=== PATIENT | female | born 1995 | race Caucasian/White ===

== ENCOUNTER 2019-07-18 19:52 | Emergency (ER) | payer OTHER ==
--- NOTE | 2019-07-18 19:58 | ED Physician Documentation ---
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 she also reports some vague complaints to include possible paresthesias in bilaterally upper extremities that lasted a few seconds and has since resolved. she denies any cp/sob/syncope/neck pain/rashes/fevers or any other complaints. denies any chronic medical problems, did not try and treatment prior to arrival. has a scheduled appointment tomorrow am with her physician at [facility]. Denies any family hx of suddent in mother, brother, father, sister.describes her headache as minimal, not sudden in onset, not maximum in intensity, not the worst headache of her life. denies any fam/pers hx of SAH/cerebral aneurysm. denies any hx of seizures.) Review of Systems Constitutional: reports: Reviewed and negative Eyes: reports: Reviewed and negative Ears: reports: Reviewed and negative Nose: reports: Reviewed and negative Throat: reports: Reviewed and negative Cardiac: reports: Reviewed and negative Respiratory: reports: Reviewed and negative GI: reports: Reviewed and negative : reports: Reviewed and negative Skin: reports: Reviewed and negative Musculoskeletal: reports: Reviewed and negative Neurologic: reports: Headache Psychiatric: reports: Reviewed and negative Endocrine: reports: Reviewed and negative Immunocompromised: reports: Reviewed and negative PD PAST MEDICAL HISTORY - Allergies Allergies/Adverse Reactions: Allergies Allergy/AdvReac Type Severity Reaction Status Date / Time No Known Drug Allergies Allergy Verified 07/18/19 19:54 PD ED PE NORMAL - Vitals Vital signs reviewed: Yes - General General: Alert and oriented X 3, No acute distress, Well developed/nourished - HEENT HEENT: Atraumatic, PERRL, EOMI, Ears normal, Moist mucous membranes, Pharynx benign, Dentition benign, Other (Extraocular motion intact and there is no nystagmus on exam funduscopic exam shows no papilledema.) - Neck Neck: Supple, no meningeal sign, No bony TTP, No adenopathy, Thyroid normal, No JVD - Cardiac Cardiac: RRR, No murmur, Strong equal pulses - Respiratory Respiratory: No respiratory distress, Clear bilaterally - Abdomen Abdomen: Normal bowel sounds, Soft, Non tender, Non distended - Rectal Rectal: Deferred, Pt declined - Back Back: No CVA TTP, No spinal TTP - Derm Derm: Normal color, Warm and dry, No rash - Extremities Extremities: No deformity, No tenderness to palpate, Normal ROM s pain, No edema, No calf tenderness / cord - Neuro Neuro: Alert and oriented X 3, director prospect 2-12 intact, No motor deficit, No sensory deficit, Normal speech, Other (There is no facial droop, no pronator drift, no unilateral weakness. Normal [id number], normal [id number]-[id number], normal rapid alternating movements strength is 5 out of 5 in bilateral upper and lower extremity sensations intact to light touch funduscopic exam shows no papilledema.) - Psych Psych: Normal mood, Normal affect Results - Vitals Vitals: Vital Signs - 24 hr 07/18/19 07/18/19 19:54 20:36 Temperature 36.6 C 37.1 C Heart Rate 79 86 Respiratory 14 14 Rate Blood Pressure 136/70 H 111/71 O2 Saturation 100 98 Oxygen O2 Source Room air PD MEDICAL DECISION MAKING - ED course Complexity details: considered differential (Patient reports vague symptoms of a mild headache that has resolved that started approximately 10 AM earlier today she denies any headache currently denies any fevers, neck pain, shortness of breath or any syncopal episodes there is no red flags on history exam to suggest subarachnoid hemorrhage or cerebral aneurysm or ischemic or hemorrhagic stroke.Patient is well-appearing and she has established follow-up care tomorrow 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 Patient will be discharged home with close follow-up.) Departure - Departure Disposition: 01 Home, Self Care Clinical Impression: Headache Qualifiers: Headache type: unspecified Headache chronicity pattern: unspecified pattern Intractability: not intractable Qualified Code(s): R51 - Headache Condition: Stable Instructions: ED Cephalgia Unspecified Follow-Up: your, doctor [Other] - Tomorrow Comments: follow up with your physician tomorrow at [facility]. Discharge Date/Time: 07/18/19 20:40
[2019-07-18] MEDS ORDERED: ACETAMINOPHEN 325 MG TABLET PO STA (20:18)
[2019-07-18 20:40] VITALS: BP 111/71
== END 2019-07-18 20:40 | disposition home or self-care (01) ==
LOC: ED 19:52
DX: R51 Headache (principal)
CPT/HCPCS: 99282; 99284; A9270

== ENCOUNTER 2021-02-24 11:33 | Emergency (ER) | payer OTHER ==
[2021-02-24 11:57] VITALS: BP 97/67
[2021-02-24] MEDS ORDERED: VENLAFAXINE 37.5 MG TABLET PO STA (12:30)
--- NOTE | 2021-02-24 12:33 | ED Physician Documentation ---
History of Present Illness - Stated complaint Stated Complaint: DRUG WITHDRAWALS - Chief complaint Chief Complaint: General - History obtained from History obtained from: Patient - Additonal information Additional information: -year-old woman who with depression had her depression well controlled on Effexor at a dose of 150 mg once a day. Because there is also a possibility of IBS she was being rapidly transition from Effexor to amitriptyline over 2 weeks. The weaning plan from the Effexor was to go from 150 mg a day to 75 mg a day for a week, then 37.5 mg a day for a week, then stop. The plan for amitriptyline was starting at 10 mg at night and then to 20 mg at night after the first week. Over the last few days she has developed terrible symptoms including fatigue, brain zaps, shakiness. She denies SI or HI. Review of Systems Constitutional: denies: Fever, Chills Cardiac: denies: Chest pain / pressure, Palpitations Respiratory: denies: Dyspnea, Cough PD PAST MEDICAL HISTORY - Past Medical History Psych: Depression, Anxiety, ADD/ADHD - Past Surgical History Past Surgical History: Yes HEENT: Tonsil/Adenoidectomy - Present Medications Home Medications: Ambulatory Orders Medication Instructions Recorded Confirmed Venlafaxine ER [Effexor ER] 75 mg PO DAILY #30 cap 02/24/21 - Allergies Allergies/Adverse Reactions: Allergies Allergy/AdvReac Type Severity Reaction Status Date / Time Penicillins AdvReac Unknown Verified 02/24/21 11:57 - Social History Does the pt smoke?: No Smoking Status: Former smoker Does the pt drink ETOH?: Yes Does the pt have substance abuse?: No - Immunizations Immunizations are current?: Yes - POLST Patient has POLST: No PD ED PE NORMAL - Vitals Vital signs reviewed: Yes - General General: Alert and oriented X 3, No acute distress - Extremities Extremities: Other (Normal reflexes at the ankles without clonus) - Neuro Neuro: Alert and oriented X 3, Normal speech - Psych Psych: Normal mood, Normal affect Results - Vitals Vitals: Vital Signs - 24 hr 02/24/21 11:51 Temperature 36.2 C L Heart Rate 99 Respiratory 18 Rate Blood Pressure 97/67 O2 Saturation 100 Oxygen O2 Source Room air Departure - Departure Disposition: 01 Home, Self Care Clinical Impression: On SSRI therapy Medication withdrawal Qualifiers: Substance type: other psychoactive substance Qualified Code(s): F19.939 - Other psychoactive substance use, unspecified with withdrawal, unspecified Condition: Good Record reviewed to determine appropriate education?: Yes Prescriptions: Venlafaxine ER [Effexor ER] 75 mg PO DAILY #30 cap Comments: As discussed, I am restarting your Effexor at 75 mg once a day and I would recommend that you take the amitriptyline at 10 mg at night. Follow-up with your doctor to see how this is going. Return for new or worsening symptoms. I sent your prescription electronically to [facility] in [place].
== END 2021-02-24 12:41 | disposition home or self-care (01) ==
LOC: ED 11:33
DX: F19.939 Other psychoactive substance use, unspecified with withdrawal, unspecified (principal); F32.A Depression, unspecified; Z87.891 Personal history of nicotine dependence
CPT/HCPCS: 99282; 99283; A9270

== ENCOUNTER 2021-10-31 16:06 | Outpatient (CLI) | payer OTHER | END 2021-10-31 16:07 | disposition critical access hospital (66) | LOC: EMS 16:06 | DX: R45.851 Suicidal ideations (principal) | CPT/HCPCS: A0425; A0429 ==

== ENCOUNTER 2021-10-31 16:35 | Emergency (ER) | payer OTHER ==
[2021-10-31 17:02] LABS: HCT - HEMATOCRIT 36.8 % (37.0-47.0); HGB - HEMOGLOBIN 12.6 g/dL (12.0-16.0); LYMPHOCYTES # (AUTO) 2.3 10^3/uL (1.5-3.5); MEAN CORPUSCULAR HGB CONC 34.2 g/dL (32.0-36.0); MEAN CORPUSCULAR VOLUME 81.8 fL (81.0-99.0); MEAN PLATELET VOLUME 10.2 fL (7.9-10.8); MONOCYTES # (AUTO) 0.6 10^3/uL (0.0-1.0); MONOCYTES % (AUTO) 7.5 %; NEUTROPHILS # (AUTO) 4.5 10^3/uL (1.5-6.6); NEUTROPHILS % (AUTO) 61.4 %; PLT - PLATELET COUNT 264 10^3/uL (130-450); RED CELL DISTRIBUTION WIDTH 12.1 % (12.0-15.0); WHITE BLOOD COUNT 7.3 x10^3/uL (4.8-10.8)
[2021-10-31 17:19] LABS: ACETAMINOPHEN < 10 ug/mL (10-30); ALBUMIN 3.5 g/dL (3.2-5.5); ALKALINE PHOSPHATASE 46 IU/L (42-121); ALT ALANINE AMINOTRANSFERASE 18 IU/L (10-60); AST ASPARTATE AMINOTRANSFERASE 15 IU/L (10-42); BILIRUBIN,TOTAL 0.2 mg/dL (0.2-1.0); BUN - BLOOD UREA NITROGEN 12 mg/dL (6-20); CALCIUM 8.5 mg/dL (8.5-10.3); CARBON DIOXIDE - CO2 27 mmol/L (21-32); CHLORIDE 103 mmol/L (101-111); CREATININE 0.7 mg/dL (0.4-1.0); ETOH - ETHANOL < 5.0 mg/dL; GFR - MDRD 100 (>89); GLUCOSE 95 mg/dL (70-100); LIPASE 43 U/L (22-51); POTASSIUM 3.7 mmol/L (3.5-5.0); SALICYLATE < 6.0 mg/dL; SODIUM 136 mmol/L (135-145)
[2021-10-31 17:24] LABS: MUDS CUTOFF CONCENTRATIONS CUTOFF CONC BELOW:
[2021-10-31 17:27] LABS: BILIRUBIN,URINE NEGATIVE (NEGATIVE); GLUCOSE, URINE (UA) NEGATIVE (NEGATIVE); KETONES,URINE (UA) NEGATIVE (NEGATIVE); LEUKOCYTE ESTERASE, URINE SMALL (NEGATIVE); NITRITE,URINE NEGATIVE (NEGATIVE); OCCULT BLOOD,URINE NEGATIVE (NEGATIVE); PROTEIN,URINE NEGATIVE (NEGATIVE); UROBILINOGEN,URINE 0.2 (NORMAL) E.U./dL (NORMAL)
[2021-10-31 17:29] LABS: CLARITY,URINE CLEAR (CLEAR); HCG UR QUAL NEGATIVE
[2021-10-31 17:36] LABS: BACTERIA,URINE Few /HPF (None Seen); RBC,URINE 0-5 /HPF (0-5); SQUAMOUS EPITHELIAL CELL,UR MOD Squamous (<= Few)
[2021-10-31 17:38] LABS: AMPHETAMINE SCREEN,URINE NEGATIVE (NEGATIVE); BARBITURATE SCREEN,UR NEGATIVE (NEGATIVE); BENZODIAZEPINES SCREEN, URINE NEGATIVE (NEGATIVE); COCAINE SCREEN URINE NEGATIVE (NEGATIVE); METHADONE SCREEN, URINE NEGATIVE (NEGATIVE); METHAMPHETAMINES SCREEN, URINE NEGATIVE (NEGATIVE); OPIATE SCREEN, URINE NEGATIVE (NEGATIVE); OXYCODONE SCREEN, URINE NEGATIVE (NEGATIVE); PROPOXYPHENE SCREEN, URINE NEGATIVE (NEGATIVE); THC CANNABINOID SCREEN, URINE NEGATIVE (NEGATIVE); TRICYCLIC ANTIDEPRESSANT,URINE POSITIVE (NEGATIVE)
--- NOTE | 2021-10-31 18:10 | ED Physician Documentation ---
PD HPI MHE - Stated complaint Stated Complaint: SI - Chief complaint Chief Complaint: MHE - History obtained from History obtained from: Patient, EMS (patient was at PCP clinic today and stated had had increased suicidal ideation (without plan) and was brought to ER for further eval.) - History of Present Illness Primary symptom: Suicidal ideation (increased suicidal ideation the past 2 weeks without specific plan. When asked how she might consider self harm, she had to think and then said probably overdose. So not previously thought out.), Depression. No: Suicide attempt Timing - onset: How many weeks ago (2) Similar symptoms before: Diagnosis (some depression as teenager. Had overdose of Ritalin at age 16. No hospitalizations. Had been on antidepressants at that age. Has had increased depression past year with suicidal ideation increased the past 2 weeks. No plan per se.) Recently seen: Clinic (has been seen several times per patient, for recurrent/ongoing general abd pain with labs/CT/scope and no findings. Dx with IBS. This had been emotionally burdensome for patient.) Review of Systems Constitutional: denies: Fever Nose: denies: Rhinorrhea / runny nose, Congestion Throat: denies: Sore throat Respiratory: denies: Cough GI: reports: Abdominal Pain (chronic cramping mid to lower abd). denies: Vomiting, Diarrhea : denies: Dysuria, Frequency Psychiatric: reports: Depressed, Suicidal (ideation without plan). denies: Delusions, Anxiety PD PAST MEDICAL HISTORY - Past Medical History Cardiovascular: None Respiratory: None Neuro: None Endocrine/Autoimmune: None GI: None CLINICAL RESEARCH MANAGER: None : None HEENT: None Psych: Depression, Anxiety, ADD/ADHD Musculoskeletal: None Derm: None - Past Surgical History Past Surgical History: Yes HEENT: Tonsil/Adenoidectomy - Present Medications Home Medications: Ambulatory Orders Medication Instructions Recorded Confirmed Amitriptyline [Elavil] 25 mg PO HS 02/24/21 10/31/21 Rizatriptan Benzoate [Rizatriptan] 5 mg PO DAILY PRN 10/31/21 10/31/21 Venlafaxine ER [Effexor ER] 150 mg PO DAILY 10/31/21 10/31/21 norgestimate-ethinyl estradioL 1 tab PO DAILY 10/31/21 10/31/21 [Norgestimate-Ee 0.25-0.035 mg] - Allergies Allergies/Adverse Reactions: Allergies Allergy/AdvReac Type Severity Reaction Status Date / Time Penicillins AdvReac Unknown Verified 10/31/21 16:45 - Social History Does the pt smoke?: No Smoking Status: Never smoker Does the pt drink ETOH?: Yes Does the pt have substance abuse?: No - Immunizations Immunizations are current?: Yes - POLST Patient has POLST: No Results - Vitals Vitals: Vital Signs - 24 hr 10/31/21 10/31/21 16:39 17:12 Temperature 37.4 C Heart Rate 88 88 Respiratory 16 20 Rate Blood Pressure 132/82 H 115/91 H O2 Saturation 100 100 Oxygen O2 Source Room air - Labs Labs: Laboratory Tests 10/31/21 10/31/21 10/31/21 16:58 16:58 16:58 WBC 7.3 RBC 4.50 Hgb 12.6 Hct 36.8 L MCV 81.8 MCH 28.0 MCHC 34.2 RDW 12.1 Plt Count 264 MPV 10.2 Neut # (Auto) 4.5 Lymph # (Auto) 2.3 Calvert # (Auto) 0.6 Eos # (Auto) 0.0 Baso # (Auto) 0.0 Absolute Nucleated RBC 0.00 Nucleated RBC % 0.0 Sodium 136 Potassium 3.7 Chloride 103 Carbon Dioxide 27 Anion Gap 6.0 BUN 12 Creatinine 0.7 Estimated GFR (MDRD) 100 Glucose 95 Calcium 8.5 Total Bilirubin 0.2 AST 15 ALT 18 Alkaline Phosphatase 46 Total Protein 7.0 Albumin 3.5 Globulin 3.5 Albumin/Globulin Ratio 1.0 Lipase 43 TSH 1.95 Urine Color Urine Clarity Urine pH Ur Specific Mona Urine Protein Urine Glucose (UA) Urine Ketones Urine Occult Blood Urine Nitrite Urine Bilirubin Urine Urobilinogen Ur Leukocyte Esterase Urine RBC Urine WBC Ur Squamous Epith Cells Urine Bacteria Ur Microscopic Review Urine Culture Comments Urine HCG, Qual Salicylates < 6.0 Urine Opiates Screen Ur Oxycodone Screen Urine Methadone Screen Ur Propoxyphene Screen Acetaminophen < 10 L Ur Barbiturates Screen Ur Tricyclics Screen Ur Phencyclidine Scrn Ur Amphetamine Screen U Methamphetamines Scrn U Benzodiazepines Scrn Urine Cocaine Screen U Cannabinoids Screen Ethyl Alcohol < 5.0 10/31/21 17:18 WBC RBC Hgb Hct MCV MCH MCHC RDW Plt Count MPV Neut # (Auto) Lymph # (Auto) Calvert # (Auto) Eos # (Auto) Baso # (Auto) Absolute Nucleated RBC Nucleated RBC % Sodium Potassium Chloride Carbon Dioxide Anion Gap BUN Creatinine Estimated GFR (MDRD) Glucose Calcium Total Bilirubin AST ALT Alkaline Phosphatase Total Protein Albumin Globulin Albumin/Globulin Ratio Lipase TSH Urine Color YELLOW Urine Clarity CLEAR Urine pH 6.0 Ur Specific Mona 1.020 Urine Protein NEGATIVE Urine Glucose (UA) NEGATIVE Urine Ketones NEGATIVE Urine Occult Blood NEGATIVE Urine Nitrite NEGATIVE Urine Bilirubin NEGATIVE Urine Urobilinogen 0.2 (NORMAL) Ur Leukocyte Esterase SMALL H Urine RBC 0-5 Urine WBC 4-5 Ur Squamous Epith Cells MOD Squamous H Urine Bacteria Few Ur Microscopic Review INDICATED Urine Culture Comments NOT INDICATED Urine HCG, Qual NEGATIVE Salicylates Urine Opiates Screen NEGATIVE Ur Oxycodone Screen NEGATIVE Urine Methadone Screen NEGATIVE Ur Propoxyphene Screen NEGATIVE Acetaminophen Ur Barbiturates Screen NEGATIVE Ur Tricyclics Screen POSITIVE H Ur Phencyclidine Scrn NEGATIVE Ur Amphetamine Screen NEGATIVE U Methamphetamines Scrn NEGATIVE U Benzodiazepines Scrn NEGATIVE Urine Cocaine Screen NEGATIVE U Cannabinoids Screen NEGATIVE Ethyl Alcohol PD MEDICAL DECISION MAKING - ED course Complexity details: considered differential (Patient has increased suicidal i deation the last couple of weeks. She has had emotional stresses and chronic abdominal pain which is emotionally burdensome. Her command is apparently being difficult as well with assignments. She told her primary care about this and he had her brought to the ER.), d/w patient ED course: The patient admits to increased suicidal ideation but has no specific plan. When asked what how she think she would hurt herself if it got that bad, she had to think about it and said may be overdose. It therefore does not sound like a very prethought out plan. She states she has a boyfriend who is supportive. At this point the patient seems lower risk but still has had increased ideation. Might be able to safety plan. I believe the evaluation more specialized can be helpful. Our social work is not here anymore today. We do have telepsych available and I will order that. Departure - Departure Clinical Impression: Suicidal ideation, Chronic abdominal pain Depression Qualifiers: Depression Type: unspecified Qualified Code(s): F32.A - Depression, unspecified Condition: Stable Record reviewed to determine appropriate education?: Yes
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
--- NOTE | 2021-10-31 22:35 | ED Physician Documentation ---
ED Addendum - Addendum Addendum: 10/31/21 22:34 Patient has been medically cleared, she has been seen and examined by telemetry psychiatry who deemed that the patient is not an imminent threat to herself and recommends outpatient initiation of Atarax 50 mg p.o. 3 times daily as needed for anxiety. Medication sent to pharmacy. Patient discharged to the care of her partner in stable condition.
[2021-10-31 22:46] VITALS: BP 118/72
== END 2021-10-31 22:45 | disposition home or self-care (01) ==
LOC: EDUNIT# → ED 16:35
DX: F33.1 Major depressive disorder, recurrent, moderate (principal); F41.9 Anxiety disorder, unspecified; R45.851 Suicidal ideations; G89.29 Other chronic pain; R10.30 Lower abdominal pain, unspecified
CPT/HCPCS: 36415; 80053; 80306; 80307; 80320; 80329; 81001; 81025; 83690; 84443; 85025; 99283; 99284; G0425; Q3014; 81003; 87086

== ENCOUNTER 2021-12-25 06:55 | Outpatient (CLI) | payer OTHER ==
--- NOTE | 2021-12-25 08:17 | MRI Report ---
PROCEDURE: BRAIN WO INDICATIONS: AMNESIA TECHNIQUE: Noncontrast axial T1 spin echo, axial T2 fast spin echo, sagittal and axial FLAIR, coronal T2 fast sp in echo, axial gradient echo, axial diffusion and ADC through the brain. COMPARISON: None. FINDINGS: Image quality: Excellent. CSF Spaces: Basal cisterns are patent. No extra-axial fluid collections. Ventricles are normal in size and shape. Brain: No intracranial masses or hemorrhage. Cortes/white matter interface is normal. Brainstem appe ars normal. Diffusion-weighted images demonstrate no acute ischemic insult. No chronic ischemic ins ults. Normal intravascular flow voids are present. Skull and face: Calvarium has normal marrow signal. Orbits appear normal. Sinuses: Sinuses and mastoids are clear. IMPRESSION: Unremarkable brain MRI. No evidence acute intracranial process. Reviewed by: Willie Galvez MD on 12/25/2021 8:15 AM [facility] Approved by: Willie Galvez MD on 12/25/2021 8:15 AM [facility] Station ID: [id number]
== END 2021-12-25 06:56 | disposition home or self-care (01) ==
LOC: DI 06:55
PROVIDERS: ATTEND Family Medicine
DX: R41.3 Other amnesia (principal)